=== PATIENT | female | born 1970 | race Caucasian/White ===

== ENCOUNTER 2017-01-08 10:02 | Emergency (ER) | payer OTHER ==
[~2017-01-08] VITALS: Ht 172.7 cm; Wt 63.5 kg
[2017-01-08 10:07] VITALS: BP 144/90
[2017-01-08] MEDS ORDERED: BENZONATATE100 M1 PO (11:51)
[2017-01-08] MEDS ORDERED: ORTHO TRI-CYCL1 EAC1 PO (11:52)
[2017-01-08] MEDS ORDERED: VENTOLIN HFA18 GM INH (11:52)
[2017-01-08] MEDS ORDERED: PREDNISONE20 M1 PO (11:52)
[2017-01-08] MEDS ORDERED: AZITHROMYCIN500 M3 PO (11:52)
[2017-01-08] MEDS ORDERED: TAMIFLU75 M1 PO (12:06)
--- NOTE | 2017-01-08 12:08 | RADIOLOGY REPORT ---
EXAMINATION: XR CHEST 2 VIEWS CLINICAL INFORMATION: Cough and fever. COMPARISON: 09/23/2010. TECHNIQUE: PA and lateral radiographs of the chest were obtained. FINDINGS: No focal consolidation, pulmonary edema, or pleural effusion. Stable cardiomediastinal silhouette. IMPRESSION: No acute cardiopulmonary findings
--- NOTE | 2017-01-08 12:08 | ED DYSPNEA/ASTHMA COMPLAINT ---
History of Present Illness General Chief Complaint: Upper Respiratory Sx/Fever Stated Complaint: URI Source: patient, family Exam Limitations: no limitations Vital Signs & Intake/Output Vital Signs & Intake/Output Vital Signs Date Time Temp Pulse Resp B/P Pulse O2 O2 Flow FiO2 Ox Delivery Rate 01/08 1007 98.2 92 20 144/90 98 Room Air Allergies Coded Allergies: amoxicillin (HIVES 01/08/17) Reconcile Medications Albuterol Sulfate (Ventolin Hfa) 90 MCG HFA.AER.AD 2 PUF INH Q4-6 PRN PRN SHORTNESS OF BREATH (Reported) Azithromycin 500 MG TABLET 1 TAB PO DAILY ANTIBIOTIC, INFECTION (Reported) Benzonatate 100 MG CAPSULE 1 CAP PO TID COUGH (Reported) Norgestimate-Ethinyl Estradiol (Ortho Tri-Cyclen Lo Tablet) [id number] LO TABLET 1 TAB PO DAILY BC (Reported) Oseltamivir Phosphate (Tamiflu) 75 MG CAPSULE 1 CAP PO BID Influenza B Prednisone 20 MG TABLET 1 TAB PO DAILY STEROID (Reported) Triage Note: PT TO ED C/O COUGH SINCE SUNDAY. PT WENT TO WALK IN ON SUNDAY AND WAS GIVEN Z-PACK,TESSALON,INHALER AND PREDNISONE. PT STATES SHE CONTINUES WITH FEVERS, COUGH AND URI S/S. AFEBRILE. Triage Nurses Notes Reviewed? yes : No Patient currently breastfeeds: No HPI: 46 yo F PMH Asthma presenting with URI Sx, fevers. URI Sx for the past 3-4 days with cough, congestion, rhinorrhea, denies sore throat. Some wheezing and mild SOB, worse 2-3 days ago, evaluated a walk in, given albuterol, prednisone, tessalon pearls, z-pack with improvement. Fevers starting this morning, Tmax 102 , treated with tylenol, associated malaise, myalgias, arthralgias. (+) sick contacts, works at daycare. Denies chest pain, palpitations, AP, N/V/D/C, urinary Sx, neurologic Sx. No influenza vaccination this year. (ENID JOINER,RADHIKA) Past History Travel History Traveled to [place] past 21 day No Medical History Any Pertinent Medical History? see below for history Respiratory: asthma Surgical History Surgical History: none Psychosocial History What is your primary language Urdu Tobacco Use: Quit >30 days ago ETOH Use: denies use Illicit Drug Use: denies illicit drug use Family History Hx Contributory? No (RADHIKA ROSSI MD) Review of Systems Review of Systems Constitutional: Reports: chills, fever, malaise. EENTM: Reports: nasal congestion. Respiratory: Reports: cough, short of breath, sputum production, wheezing. Denies: orthopnea. Cardiovascular: Denies: chest pain, edema, orthopena, palpitations, peripheral edema, syncope. GI: Reports: no symptoms. Genitourinary: Reports: no symptoms. Musculoskeletal: Reports: joint pain, muscle pain. Denies: joint swelling, muscle stiffness, neck pain. Skin: Reports: no symptoms. Neurological/Psychological: Reports: no symptoms. Hematologic/Endocrine: Reports: no symptoms. Immunologic/Allergic: Reports: no symptoms. All Other Systems: Reviewed and Negative (ENID JOINER,RADHIKA) Physical Exam Physical Exam General Appearance: well developed/nourished, no apparent distress, alert, awake Head: normal appearance Eyes: Bilateral: normal appearance. Ears, Nose, Throat: normal pharynx, normal ENT inspection Neck: supple, full range of motion Respiratory: normal breath sounds, no respiratory distress, lungs clear Cardiovascular: regular rate/rhythm, normal peripheral pulses Gastrointestinal: normal bowel sounds, soft, non-tender Extremities: normal inspection, no edema Neurologic/Psych: no motor/sensory deficits, awake, alert, oriented x 3 Skin: intact Comments: Pulmonary: + bronchospastic cough, lungs clear to ascultation bilaterally without wheezes, normal WOB without respiratory distress Core Measures ACS in differential dx? No Severe Sepsis Present: No Septic Shock Present: No (RADHIKA ROSSI MD) Progress Differential Diagnosis: asthma, bronchitis, COPD, pulmonary embolism, pneumonia, pneumothorax, Influenza Plan of Care: Orders Procedure Date/time Status VIRAL CULTURE 01/08 1140 Active RAPID VIRAL INFLUENZA A 01/08 1129 Complete Laboratory Tests 01/08/17 1140: Virus Culture Pending Microbiology 01/08 1140 NASOPHARYN: Influenza Virus A & B Rapid Smear - COMP INFLUENZA TYPE B Physician MDM: 46 yo F PMH asthma presenting with URI Sx, fevers, mild wheezing and SOB. VSS, normal HR and room air O2 saturation, pulmonary exam as above. DDx : Asthma exacerbation, Viral URI, Bronchitis, PNA, influenza, low concern for PTX, PE. CXR without focal consolidation or airspace disease. Rapid influenza (+ ) for flu B. Given fevers and myalgias starting today, will treat with tamiflu x 5 days. D/Hossein with return precautions, plan to f/u with PMD. D/W Dr. Parish. (RADHIKA ROSSI MD) Initial ED EKG: none (ENID JOINER,RADHIKA) Departure Departure Disposition: HOME OR SELF CARE Condition: Stable Clinical Impression Primary Impression: Influenza B Referrals: BILLY DYE MD (PCP/Family) Additional Instructions: Take tamiflu 2x daily for the next 5 days. Continue medications as prescribed by walk-in clinic. Follow up with your primary care provider in the next 2-3 days. Return to the ED for any new, worsening, or concerning symptoms. Departure Forms: Customer Survey General Discharge Information Prescriptions: Current Visit Scripts Oseltamivir Phosphate (Tamiflu) 1 CAP PO BID #10 CAP (RADHIKA ROSSI MD) Resident Co-Sign Statement Statement: ED Attending supervision documentation- [x] I saw and evaluated the patient. I have also reviewed all the pertinent lab results and diagnostic results. I agree with the findings and the plan of care as documented in the Resident's documentation. [] I have reviewed the ED Record and agree with the Resident's documentation. [] Additions or exceptions (if any) to the Resident's note and plan are summarized below: [] (GEMMA PARISH DO) Critical Care Note Critical Care Note Critical Care Time: non-applicable (RADHIKA ROSSI MD)
== END 2017-01-08 12:21 ==
LOC: ERH 10:02
DX: J10.1 Influenza due to other identified influenza virus with other respiratory manifestations (principal); Z87.891 Personal history of nicotine dependence
CPT/HCPCS: 87804; 87804-59